=== PATIENT | female | born 1965 | race Caucasian/White ===

== ENCOUNTER 2016-04-26 16:06 | Emergency (ER) | payer SELFPAY ==
[2016-04-26 16:13] VITALS: BP 142/70
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
== END 2016-04-26 17:32 | disposition home or self-care (01) ==
LOC: UCEAST 16:06
DX: S16.1XXA Strain of muscle, fascia and tendon at neck level, initial encounter (principal); S06.0X0A Concussion without loss of consciousness, initial encounter; V44.5XXA Car driver injured in collision with heavy transport vehicle or bus in traffic accident, initial encounter; Y93.89 Activity, other specified; Y92.410 Unspecified street and highway as the place of occurrence of the external cause; Z88.2 Allergy status to sulfonamides
CPT/HCPCS: 99211; G0463

== ENCOUNTER 2022-09-28 08:17 | Inpatient (IN) ==
[~2022-09-28 08:17] MED LIST: Buffered Lidocaine 1% SYRIN 1 ml INTRADERM ONE; Lactated Ringers 1000 ml BAG 1,000 ML IV SCH; Naloxone 0.4 mg VIAL 0.4 mg/ml 1 ml VIAL IV PRN; ROPIVACAINE 5 MG/ML 30 ML BTL (0.5%) ONE; fentaNYL 100 mcg/2 ml 50 MCG/ML VIAL ONE
[2022-09-28] MEDS ORDERED: Glycopyrrolate IV 0.2 MG/ML 1 ML VIAL ONE (08:22)
[2022-09-28] MEDS ORDERED: Lidocaine 2% PF 5 ML VIAL ONE (08:22)
[2022-09-28] MEDS ORDERED: Ondansetron 4 mg VIAL 2 MG/ML 2 ml VIAL ONE (08:22)
[2022-09-28] MEDS ORDERED: Dexamethasone IV 4 MG/ML VIAL 1 ml VIAL ONE (08:22)
[2022-09-28] MEDS ORDERED: Midazolam 2 mg/2 ml VIAL 1 mg/ml 2 ml VIAL (2 mg) ONE ×2 (08:25→13:40)
[2022-09-28] MEDS ORDERED: ceFAZolin 2 GM PREMIX 2 GM/50 ML BAG ONE (08:55)
[2022-09-28 09:08] LABS: Rapid COVID-19 Molecular Undetected (Undetected)
[2022-09-28] MEDS ORDERED: Acetaminophen IV 1 GM/100ML 1,000 MG/100 ML BAG IV ONE (11:37)
[2022-09-28] MEDS ORDERED: NACL IV ONE (12:01)
[2022-09-28] MEDS ORDERED: TRANEXAMIC ACID IV ONE (12:01)
[2022-09-28] MEDS ORDERED: Magnesium Hydroxide LIQ 30 ML UDC PO PRN (13:54)
[2022-09-28] MEDS ORDERED: Morphine 2 MG/ML SYRINGE IV PRN (13:54)
[2022-09-28] MEDS ORDERED: Lactulose 30 ml UDC PO PRN (13:54)
[2022-09-28] MEDS: Lactated Ringers 1000 ml BAG 1,000 ML IV SCH ×2 (16:11→21:34)
[2022-09-28] MEDS ORDERED: Lactated Ringers 1000 ml BAG 500 ML IV ONE (17:00)
[2022-09-28] MEDS: Magnesium Hydroxide LIQ 30 ML UDC PO SCH (20:16)
[2022-09-28] MEDS: ceFAZolin 1 GM ADVAN 1 GM in NS 0.9% 50 ML 50 ML IVPB SCH (20:16)
[2022-09-29] MEDS: ceFAZolin 1 GM ADVAN 1 GM in NS 0.9% 50 ML 50 ML IVPB SCH ×2 (04:21→10:59)
[2022-09-29 06:53] LABS: Hematocrit 24.7 % (35-45); Hemoglobin 8.7 g/dL (11.5-14.3); Mean Platelet Volume 8.6 fL (7.5-11.2); Platelet Count 180 10^3/uL (150-450)
[2022-09-29 07:20] LABS: Calcium 8.4 mg/dL (8.6-10.3); Creatinine, Serum 0.69 mg/dL (0.51-0.95); Potassium 4.2 mmol/L (3.5-5.0); eGFR CKD-EPI 101.8 (>60)
[2022-09-29] MEDS: Magnesium Hydroxide LIQ 30 ML UDC PO SCH (08:59)
[2022-09-29] MEDS ORDERED: Vitamin THERAPEUTIC TAB PO SCH (09:00)
[2022-09-29 14:02] VITALS: BP 80/51
== END 2022-09-29 14:45 | disposition home or self-care (01) | DRG 301 ==
LOC: AA 08:17 → INTOOBSV 08:17 → SSU 15:29
PROVIDERS: ADMIT Orthopaedic Surgery Adult Reconstructive Orthopaedic Surgery; ATTEND Orthopaedic Surgery Adult Reconstructive Orthopaedic Surgery